=== PATIENT | female | born 2000 | race Caucasian/White ===

== ENCOUNTER 2018-09-27 20:39 | Emergency (ER) | payer OTHER ==
[~2018-09-27] VITALS: Ht 162.6 cm; Wt 69.0 kg
[~2018-09-27 20:39] MED LIST: Ativan1 MG PO; HYDR1TAB94 PO
[2018-09-27] MEDS ORDERED: Prednisone20 MG PO (21:18)
== END 2018-09-27 21:40 | disposition home or self-care (01) ==
LOC: ER 20:39
DX: T63.441A Toxic effect of venom of bees, accidental (unintentional), initial encounter (principal); Z91.013 Allergy to seafood
CPT/HCPCS: 96372; 99282-25; J2930

== ENCOUNTER → 2019-11-05 | Outpatient (CLI) | payer OTHER ==
[~2019-11-05] MED LIST changes: +Prednisone20 MG PO
[2019-11-06 11:32] LABS: Candida species (DNA Probe) Negative (NEGATIVE); G. vaginalis (DNA Probe) Negative (NEGATIVE); T. vaginalis (DNA Probe) Negative (NEGATIVE)
== END ==
LOC: LAB 11:11 → LAB SHORT 11:11
PROVIDERS: Nurse Practitioner Family
DX: Z12.4 Encounter for screening for malignant neoplasm of cervix (principal); N89.8 Other specified noninflammatory disorders of vagina
CPT/HCPCS: 87070; 87205; 87480; 87510; 87660; G0145

== ENCOUNTER → 2020-04-06 | Outpatient (CLI) | payer OTHER | LOC: PLD 15:37 → LAB SHORT 15:37 | DX: R82.998 Other abnormal findings in urine (principal) | CPT/HCPCS: 87086 ==

== ENCOUNTER → 2020-04-15 | Outpatient (CLI) | payer OTHER ==
[2020-04-15 13:09] LABS: Source, Urine Clean Catch
[2020-04-15 14:31] LABS: Appearance, Urine Clear (Clear); Bilirubin, Urine Neg (Neg); Blood, Urine 1+ (Neg); Color, Urine Yellow (P-Yellow); Glucose Qualitative, Urine Neg (Neg); Ketones, Urine Neg (Neg); Leukocyte Esterase, Urine 1+ (Neg); Nitrite, Urine Neg (Neg); Protein, Urine Neg (Neg); Urobilinogen, Urine NORM (Normal)
[2020-04-15 14:37] LABS: Squamous Epithelial Cells Few /hpf (Few)
[2020-04-15 14:38] LABS: Bacteria Mod /hpf
== END ==
LOC: LAB SHORT 13:01 → PLD 13:01
PROVIDERS: Nurse Practitioner Family
DX: R82.998 Other abnormal findings in urine (principal)
CPT/HCPCS: 81001; 87086

== ENCOUNTER → 2021-07-04 | Outpatient (CLI) | payer OTHER | END | disposition home or self-care (01) | LOC: LAB 17:25 → LAB SHORT 17:25 | PROVIDERS: Advanced Practice Midwife | DX: Z01.419 Encounter for gynecological examination (general) (routine) without abnormal findings (principal) | CPT/HCPCS: G0123 ==

== ENCOUNTER 2022-03-18 17:07 | Emergency (ER) | payer OTHER ==
[~2022-03-18] VITALS: Ht 170.2 cm; Wt 90.7 kg
[2022-03-18 19:58] LABS: BASOPHILS ABSOLUTE AUTO 0.03 K/mm3 (0.00-0.23); BASOPHILS PERCENT AUTO 0 % (0-2); EOSINOPHILS ABSOLUTE AUTO 0.57 K/mm3 (0.00-0.68); EOSINOPHILS PERCENT AUTO 7 % (0-6); Hemoglobin 13.2 g/dL (11.5-16.0); IMMATURE GRAN ABSOLUTE AUTO 0.01 K/mm3 (0.00-0.10); IMMATURE GRAN PERCENT AUTO 0 % (0-1); LYMPHOCYTES ABSOLUTE AUTO 2.27 K/mm3 (0.84-5.20); LYMPHOCYTES PERCENT AUTO 27 % (21-46); MONOCYTES PERCENT AUTO 7 % (4-13); Mean Corpuscular HGB 29.3 pg (26.0-34.0); Mean Corpuscular HGB Conc 33.8 g/dL (31.5-36.5); Mean Corpuscular Volume 87 fL (80-100); Mean Platelet Volume 10.3 fL (9.1-12.4); NEUTROPHILS ABSOLUTE AUTO 5.07 K/mm3 (1.96-9.15); NEUTROPHILS PERCENT AUTO 59 % (41-73); Platelet Count 324 K/mm3 (150-400); RDW Coefficient Variation 12.3 % (11.7-14.2); Red Blood Cell Count 4.51 M/mm3 (3.80-5.20); White Blood Cell Count 8.55 K/mm3 (4.00-11.30)
[2022-03-18] MEDS ORDERED: HYDR1TAB94 PO (20:56)
== END 2022-03-18 21:27 | disposition home or self-care (01) ==
LOC: ER 17:07
PROVIDERS: Emergency Medicine
DX: K62.89 Other specified diseases of anus and rectum (principal); Z91.013 Allergy to seafood
CPT/HCPCS: 85025

== ENCOUNTER → 2022-07-05 | Outpatient (CLI) | payer OTHER ==
[2022-07-07 01:11] LABS: CHLAMYDIA TRACHOMATIS, NAA Negative (Negative)
== END ==
LOC: LAB SHORT 11:40 → LAB 11:40
PROVIDERS: Advanced Practice Midwife
DX: Z11.3 Encounter for screening for infections with a predominantly sexual mode of transmission (principal); Z01.419 Encounter for gynecological examination (general) (routine) without abnormal findings
CPT/HCPCS: 87491; 87591; G0145

== ENCOUNTER 2022-09-14 09:36 | Day surgery (SDC) | payer OTHER ==
[~2022-09-14] VITALS: Ht 167.6 cm; Wt 90.8 kg
[2022-09-14] MEDS ORDERED: Ventolin5 MG/1 ML (11:19)
[2022-09-14] MEDS ORDERED: SUMA25 (11:20)
[2022-09-14] MEDS ORDERED: MELATONIN1 M1 (11:20)
[2022-09-14 12:44] VITALS: BP 100/61
== END 2022-09-14 12:44 | disposition home or self-care (01) ==
LOC: ORSCSDS 09:36
PROVIDERS: Surgery
PROC: 0DB68ZX Excision of Stomach, Via Natural or Artificial Opening Endoscopic, Diagnostic (ICD-10-PCS; principal; 2022-09-14 11:00)
DX: K21.9 Gastro-esophageal reflux disease without esophagitis (principal); K44.9 Diaphragmatic hernia without obstruction or gangrene; K29.70 Gastritis, unspecified, without bleeding; J45.909 Unspecified asthma, uncomplicated; Z79.899 Other long term (current) drug therapy
CPT/HCPCS: 88305; 88342; J2250; J2704; J7120

== ENCOUNTER → 2023-03-22 | Outpatient (CLI) | payer OTHER ==
[~2023-03-22] MED LIST changes: +MELATONIN1 M1; +SUMA25; +Ventolin5 MG/1 ML
[2023-03-22 17:22] LABS: Source, Urine Clean Catch
[2023-03-22 18:26] LABS: U Amphetamine Screen Not Detected; U Barbituate Screen Not Detected; U Benzodiazapine Screen Not Detected; U Buprenorphine Screen Not Detected; U Cannabinoids Screen Not Detected; U Cocaine Screen Not Detected; U Methadone Screen Not Detected; U Methamphetamine Screen Not Detected; U Opiates Screen Not Detected; U Oxycodone Screen Not Detected; U Phencyclidine Screen Not Detected
[2023-03-22 18:36] LABS: Bacteria Many /hpf; Squamous Epithelial Cells Few /hpf (Few)
== END | disposition home or self-care (01) ==
LOC: LAB 17:20 → LAB SHORT 17:20
PROVIDERS: Obstetrics & Gynecology
DX: Z34.01 Encounter for supervision of normal first pregnancy, first trimester (principal)
CPT/HCPCS: 81015; 87086

== ENCOUNTER → 2023-04-19 | Outpatient (CLI) | payer OTHER ==
[2023-04-19 16:11] LABS: BASOPHILS ABSOLUTE AUTO 0.04 K/mm3 (0.00-0.23); BASOPHILS PERCENT AUTO 0 % (0-2); EOSINOPHILS ABSOLUTE AUTO 0.09 K/mm3 (0.00-0.68); EOSINOPHILS PERCENT AUTO 1 % (0-6); Hemoglobin 13.5 g/dL (11.5-16.0); IMMATURE GRAN ABSOLUTE AUTO 0.05 K/mm3 (0.00-0.10); IMMATURE GRAN PERCENT AUTO 0 % (0-1); LYMPHOCYTES ABSOLUTE AUTO 2.12 K/mm3 (0.84-5.20); LYMPHOCYTES PERCENT AUTO 17 % (21-46); MONOCYTES ABSOLUTE AUTO 0.69 K/mm3 (0.16-1.47); MONOCYTES PERCENT AUTO 5 % (4-13); Mean Corpuscular HGB 29.7 pg (26.0-34.0); Mean Corpuscular HGB Conc 35.5 g/dL (31.5-36.5); Mean Corpuscular Volume 84 fL (80-100); Mean Platelet Volume 10.8 fL (9.1-12.4); NEUTROPHILS ABSOLUTE AUTO 9.85 K/mm3 (1.96-9.15); NEUTROPHILS PERCENT AUTO 77 % (41-73); Platelet Count 309 K/mm3 (150-400); RDW Coefficient Variation 12.2 % (11.7-14.2); RDW Standard Deviation 36.9 fL (35.1-46.3); Red Blood Cell Count 4.54 M/mm3 (3.80-5.20); White Blood Cell Count 12.84 K/mm3 (4.00-11.30)
[2023-04-19 16:20] LABS: Albumin, Blood 3.5 g/dL (3.4-5.0); Albumin/Globulin Ratio 0.8 (0.8-1.8); Bilirubin, Total 0.5 mg/dL (0.1-1.0); Bun/Creatinine Ratio 7.7 (12.0-20.0); Calcium, Blood 9.3 mg/dL (8.5-10.1); Creatinine, Blood 0.65 mg/dL (0.40-1.00); Globulin, Blood 4.3 g/dL (2.2-4.0); Potassium, Blood 3.4 mmol/L (3.5-5.5); Total Protein, Blood 7.8 g/dL (6.4-8.2)
== END | disposition home or self-care (01) ==
LOC: LAB 16:05 → LAB SHORT 16:05
PROVIDERS: Chiropractor
DX: R11.2 Nausea with vomiting, unspecified (principal); R82.90 Unspecified abnormal findings in urine
CPT/HCPCS: 80053; 85025; 87086

== ENCOUNTER → 2023-10-01 | Outpatient (CLI) | payer OTHER ==
[~2023-10-01] MED LIST changes: +CEPH500 PO
== END | disposition home or self-care (01) ==
LOC: LAB SHORT 15:23 → LAB 15:23
DX: O09.891 Supervision of other high risk pregnancies, first trimester (principal)
CPT/HCPCS: 87081; 87150

== ENCOUNTER 2023-10-19 21:22 | Inpatient (IN) | payer OTHER ==
[~2023-10-19] VITALS: Ht 167.6 cm; Wt 91.3 kg
[~2023-10-19 21:22] MED LIST changes: +Lidocaine HCl 1% 30 ML SDV XX ONE
[2023-10-19 21:36] VITALS: BP 104/57
[2023-10-19 22:14] VITALS: BP 104/57
[2023-10-19] MEDS ORDERED: Methylergonovine Maleate 0.2MG / ML 1ML Amp IM PRN (22:35)
[2023-10-19] MEDS ORDERED: OXYTOCIN/RINGER'S LACTATE 500 ML IV PRN (22:35)
[2023-10-19] MEDS ORDERED: Misoprostol 200 MCG Tab PR PRN (22:35)
[2023-10-19] MEDS ORDERED: Ondansetron HCl 2 MG / ML 2ML Vial IV PRN (22:35)
[2023-10-19] MEDS ORDERED: Lactated Ringer's 1,000 ML IV PRN (22:35)
[2023-10-19] MEDS ORDERED: Calcium Carbonate 500 MG Tab Chew PO PRN (22:35)
[2023-10-19] MEDS ORDERED: Misoprostol 200 MCG Tab BC PRN (22:35)
[2023-10-19] MEDS ORDERED: Carboprost Tromethamine 250 MCG/ML 1ML Amp IM PRN (22:35)
[2023-10-19] MEDS ORDERED: Acetaminophen 500 MG Tab PO PRN (22:35)
[2023-10-19] MEDS ORDERED: Tranexamic Acid 100 ML IV SCH (22:35)
[2023-10-19] MEDS ORDERED: Oxytocin 10 Unit / ML Vial IM PRN (22:35)
[2023-10-19] MEDS ORDERED: Lactated Ringer's 1,000 ML IV ONE (22:43)
[2023-10-19 23:00] LABS: BASOPHILS ABSOLUTE AUTO 0.02 K/mm3 (0.00-0.23); BASOPHILS PERCENT AUTO 0 % (0-2); EOSINOPHILS ABSOLUTE AUTO 0.16 K/mm3 (0.00-0.68); EOSINOPHILS PERCENT AUTO 2 % (0-6); Hematocrit 33.4 % (33.0-51.0); IMMATURE GRAN ABSOLUTE AUTO 0.03 K/mm3 (0.00-0.10); IMMATURE GRAN PERCENT AUTO 0 % (0-1); LYMPHOCYTES ABSOLUTE AUTO 1.68 K/mm3 (0.84-5.20); LYMPHOCYTES PERCENT AUTO 20 % (21-46); MONOCYTES ABSOLUTE AUTO 0.66 K/mm3 (0.16-1.47); MONOCYTES PERCENT AUTO 8 % (4-13); Mean Corpuscular HGB 27.4 pg (26.0-34.0); Mean Corpuscular HGB Conc 32.9 g/dL (31.5-36.5); Mean Corpuscular Volume 83 fL (80-100); Mean Platelet Volume 10.6 fL (9.1-12.4); NEUTROPHILS ABSOLUTE AUTO 5.79 K/mm3 (1.96-9.15); NEUTROPHILS PERCENT AUTO 70 % (41-73); Platelet Count 250 K/mm3 (150-400); RDW Coefficient Variation 13.1 % (11.7-14.2); RDW Standard Deviation 39.6 fL (35.1-46.3); Red Blood Cell Count 4.02 M/mm3 (3.80-5.20); White Blood Cell Count 8.34 K/mm3 (4.00-11.30)
[2023-10-19] MEDS ORDERED: Lactated Ringer's 1,000 ML IV SCH (23:10)
[2023-10-19] MEDS ORDERED: CeFAZolin Sodium 2,000 MG in NS 100 ML IV SCH (23:10)
[2023-10-19] MEDS ORDERED: FentaNYL Citrate 50 MCG/ML 2 ML Injection ONE (23:17)
[2023-10-19 23:19] LABS: Albumin, Blood 2.4 g/dL (3.4-5.0); Albumin/Globulin Ratio 0.6 (0.8-1.8); Bilirubin, Total 0.3 mg/dL (0.1-1.0); Bun/Creatinine Ratio 11.4 (12.0-20.0); Calcium, Blood 8.2 mg/dL (8.5-10.1); Creatinine, Blood 0.53 mg/dL (0.40-1.00); Globulin, Blood 4.1 g/dL (2.2-4.0); Potassium, Blood 3.6 mmol/L (3.5-5.5); Total Protein, Blood 6.5 g/dL (6.4-8.2)
[2023-10-19] MEDS ORDERED: ePHEDrine Sulfate 50 MG/ML 1ML Injection ONE (23:19)
[2023-10-19] MEDS ORDERED: Oxytocin 10 Unit / ML Vial ONE (23:20)
[2023-10-19] MEDS ORDERED: Citric Acid/Sodium Citrate 30 ML BTL PO ONE (23:40)
[2023-10-19] MEDS ORDERED: Metoclopramide HCl 5MG / ML 2ML Vial IV ONE (23:40)
[2023-10-20] VITALS (36 sets, daily range): BP systolic 94–144; BP diastolic 52–94
[2023-10-20] MEDS ORDERED: Misoprostol 25 MCG Tab VAG PRN (00:50)
[2023-10-20] MEDS ORDERED: OXYTOCIN/RINGER'S LACTATE 500 ML IV SCH ×2 (00:50)
[2023-10-20] MEDS ORDERED: Lactated Ringer's 1,000 ML IV PRN (00:55)
[2023-10-20] MEDS ORDERED: FentaNYL Citrate 50 MCG/ML 2 ML Injection ONE ×2 (10:56→17:27)
[2023-10-20] MEDS ORDERED: FentaNYL Citrate 50 MCG/ML 2 ML Injection IV ONE (11:00)
[2023-10-20] MEDS ORDERED: Lactated Ringer's 1,000 ML IV SCH ×2 (11:40)
[2023-10-20] MEDS ORDERED: FentaNYL 2mcg/ml-Bup 0.1% Epd 250 ML EPI PRN (11:40)
[2023-10-20] MEDS ORDERED: FentaNYL Citrate 50 MCG/ML 2 ML Injection IV PRN (11:40)
[2023-10-20] MEDS ORDERED: ePHEDrine Sulfate 50 MG/ML 1ML Injection XX PRN (11:40)
[2023-10-21] VITALS (26 sets, daily range): BP systolic 89–138; BP diastolic 50–79
[2023-10-21] MEDS ORDERED: Lactated Ringer's 1,000 ML IV SCH (18:40)
[2023-10-21] MEDS ORDERED: Lanolin Cream TOP PRN (18:45)
[2023-10-21] MEDS ORDERED: Benzocaine Topical Anesthetic Spray 60GM TOP PRN (18:45)
[2023-10-21] MEDS ORDERED: Witch Hazel/Glycerin PADS TOP PRN (18:45)
[2023-10-21] MEDS ORDERED: Acetaminophen 325 MG TABLET PO PRN (18:45)
[2023-10-21] MEDS ORDERED: Rho(D) Immune Globulin 300 MCG / SYR IM ONE (18:45)
[2023-10-21] MEDS ORDERED: Ibuprofen 400 MG Tab PO PRN (18:45)
[2023-10-21] MEDS ORDERED: Methylergonovine Maleate 0.2MG / ML 1ML Amp IM PRN (18:50)
[2023-10-21] MEDS ORDERED: Misoprostol 200 MCG Tab PR PRN (18:50)
[2023-10-21] MEDS ORDERED: OXYTOCIN/RINGER'S LACTATE 500 ML IV SCH (18:50)
[2023-10-21] MEDS ORDERED: Ketorolac Tromethamine 30mg Vial IV SCH (19:50)
[2023-10-22] MEDS ORDERED: Ketorolac Tromethamine 30mg Vial IV SCH
[2023-10-22] MEDS ORDERED: Rho(D) Immune Globulin 300 MCG / SYR IM ONE (00:25)
[2023-10-22 04:13] VITALS: BP 109/58
[2023-10-22 07:32] VITALS: BP 102/62
--- NOTE | 2023-10-22 07:44 | NUR ---
PT DRE NB AND SELF CARE WELL. D/C INSTRUCTIONS GIVEN AND GONE OVER WITH PT AND HER S.O. BOTH VERBALIZE UNDERSTANDING. C/O SOME PAIN. PT DRE WELL AT THIS TIME. RX WILL BE GIVEN WHEN DUE. BOTH PARENTS BONDING WELL WITH NB.
[2023-10-22] MEDS ORDERED: Prenatal Vit/FE Fumarate/FA 1 Tab PO SCH (09:00)
[2023-10-22] MEDS ORDERED: Docusate Sodium 100 MG Cap PO SCH (09:00)
[2023-10-22 11:25] VITALS: BP 113/64
--- NOTE | 2023-10-22 11:30 | NUR ---
PT RESTING COMFORTABLY IN BED. VISITING WITH FAMILY. DENIES PAIN AT THIS TIME. DRE NB AND SELF CARE WELL
[2023-10-22 16:57] VITALS: BP 133/76
--- NOTE | 2023-10-22 16:58 | NUR ---
PT RESTING COMFORTABLY. PLANNING D/C HOME THIS EVENING. DENIES PAIN. DRE SELF AND NB CARE WELL.
--- NOTE | 2023-10-22 17:43 | NUR ---
[place] PP DEPRESSION SCALE NOTED TO BE 14. DISCUSSED WITH PT AND CONFIRMED THIS IS HOW SHE HAS BEEN FEELING IN THE LAST 7 DAYS. DISCUSSED PT NEEDING A SOCIAL SERVICE CONSULT. PT DENIES ANY IDEATION OF SELF HARD OR HARMING OTHERS. STATES SHE FEELS COMFORTABLE GOING HOME TONIGHT AND FOLLOWING UP WITH A ELECTRICIAN HELPER AT HER PPF[facility] VISIT. DISCUSSED WITH DR. GODOY, WHO IS IN HOUSE. DR. GODOY WILL EITHER COME SEE PT OR SHE WILL TALK WITH Charlotte FUNG CNM ABOUT HER SEEING PT. D/C PENDING ON THIS.
--- NOTE | 2023-10-22 17:58 | NUR ---
DR GODOY TALKING WITH PT. CONTINUE WITH D/C. PT TO FOLLOW UP IN THE DR'S OFFICE WITHIN 2 WEEKS. WILL SCHEDULE A FOLLOW UP WITH CASE MANAGEMENT AT HER PPFU HERE AT THE [facility]. PT COMMUNICATES THAT SHE IS COMFORTABLE WITH THIS PLAN.
[2023-10-22 19:34] VITALS: BP 119/72
--- NOTE | 2023-10-22 19:42 | NUR ---
PT D/C HOME WITH SUPORT PERSON. REVIEWED D/C INSTURCTIONS T-MAX, BLEEDING AND PPD. PT DID NOT HAVE ANY QUESTIONS. WALKED PT AND BABY OUT TO VEHICLE.
--- NOTE | 2023-10-22 20:00 | NUR ---
VASU LEFT WITH DATA WAREHOUSE ADMINISTRATOR TO FOLLOW UP WITH PATIENT ABOUT PPD SCREENING DURING HER FOLLOW UP APPOINTMENT ON 10/24/23 AT 1000.
== END 2023-10-22 19:30 | disposition home or self-care (01) | DRG 807 ==
LOC: BC 21:22 → OBS 21:22 → BC 21:24 → OBS 22:31 → BC 22:32
PROVIDERS: ADMIT Obstetrics & Gynecology
PROC: 10E0XZZ Delivery of Products of Conception, External Approach (ICD-10-PCS; principal; 2023-10-21)
PROC: 10907ZC Drainage of Amniotic Fluid, Therapeutic from Products of Conception, Via Natural or Artificial Opening (ICD-10-PCS; 2023-10-21)
PROC: 0UQMXZZ Repair Vulva, External Approach (ICD-10-PCS; 2023-10-21)
PROC: 0U7C7ZZ Dilation of Cervix, Via Natural or Artificial Opening (ICD-10-PCS; 2023-10-21)
PROC: 3E0R3BZ Introduction of Anesthetic Agent into Spinal Canal, Percutaneous Approach (ICD-10-PCS; 2023-10-21)
PROC: 00HU33Z Insertion of Infusion Device into Spinal Canal, Percutaneous Approach (ICD-10-PCS; 2023-10-21)
PROC: 3E0DXGC Introduction of Other Therapeutic Substance into Mouth and Pharynx, External Approach (ICD-10-PCS; 2023-10-21)
PROC: 3E0234Z Introduction of Serum, Toxoid and Vaccine into Muscle, Percutaneous Approach (ICD-10-PCS; 2023-10-22)
DX: O76 Abnormality in fetal heart rate and rhythm complicating labor and delivery (principal); Z37.0 Single live birth; O99.214 Obesity complicating childbirth; Z3A.38 38 weeks gestation of pregnancy; Z98.890 Other specified postprocedural states; Z91.013 Allergy to seafood; O99.52 Diseases of the respiratory system complicating childbirth; J45.909 Unspecified asthma, uncomplicated; Z79.51 Long term (current) use of inhaled steroids; Z79.82 Long term (current) use of aspirin; Z79.899 Other long term (current) drug therapy; O71.82 Other specified trauma to perineum and vulva
CPT/HCPCS: 36415; 51702; 59200; 80053; 81003; 85025; 85460; 86850; 86900; 86901; 86923; A9270; J1885; J2405; J2590; J2791; J3010; J7120

== ENCOUNTER 2024-12-28 00:51 | Emergency (ER) | payer OTHER ==
[~2024-12-28] VITALS: Ht 167.6 cm; Wt 89.8 kg
[~2024-12-28 00:51] MED LIST changes: -Lidocaine HCl 1% 30 ML SDV XX ONE
[2024-12-28] MEDS ORDERED: Ondansetron HCl 2 MG / ML 2ML Vial IV ONE (01:35)
[2024-12-28] MEDS ORDERED: NS 1,000 ML IV SCH (01:35)
[2024-12-28 02:45] VITALS: BP 111/63
== END 2024-12-28 03:01 | disposition home or self-care (01) ==
LOC: ER 00:51
DX: O99.612 Diseases of the digestive system complicating pregnancy, second trimester (principal); O99.282 Endocrine, nutritional and metabolic diseases complicating pregnancy, second trimester; K59.00 Constipation, unspecified; E86.0 Dehydration; Z3A.20 20 weeks gestation of pregnancy; Z91.013 Allergy to seafood
CPT/HCPCS: 96361; 96374; 96375; 99283-25; A9270; J2405; J7030